=== PATIENT | male | born 1975 | race Caucasian/White ===

== ENCOUNTER 2017-06-13 16:07 | Emergency (ER) | payer OTHER ==
[~2017-06-13] VITALS: Ht 177.8 cm; Wt 86.2 kg
[2017-06-13] MEDS ORDERED: CLOT15CR4 TP (16:34)
[2017-06-13] MEDS ORDERED: TRAM-48 PO (16:34)
[2017-06-13] MEDS ORDERED: AMOX1TAB61 PO (16:34)
--- NOTE | 2017-06-13 16:34 | PHYS DOC ---
Past History Past Medical History: No Pertinent History Past Surgical History: Tonsillectomy Smoking: Non-smoker Alcohol Use: None Drug Use: None Adult General Chief Complaint Chief Complaint: EARACHE/EAR PAIN [facility] HPI 41-year-old male patient complaining of right ear pain for the last 1 week after he had URI symptoms. Patient complaining of pressure feeling in his ear and decrease of hearing with radiation of pain to his neck and head. Patient states he was seen at [facility] emergency room and treated with steroid and Sudafed without improvement of his condition. Patient denies fever and chills, chest pain, shortness of breath. Review of Systems Review of Systems Constitutional: Denies fever or chills [] Eyes: Denies change in visual acuity, redness, or eye pain [] HENT: Denies nasal congestion or sore throat , reports earache[] Respiratory: Denies cough or shortness of breath [] Cardiovascular: No additional information not addressed in HPI [] GI: Denies abdominal pain, nausea, vomiting, bloody stools or diarrhea [] : Denies dysuria or hematuria [] Musculoskeletal: Denies back pain or joint pain [] Integument: Denies rash or skin lesions [] Neurologic: Denies headache, focal weakness or sensory changes [] Endocrine: Denies polyuria or polydipsia [] All other systems were reviewed and found to be within normal limits, except as documented in this note. Allergies Allergies Allergies Coded Allergies Type Severity Reaction Last Updated Verified No Known Drug Allergies 06/13/17 No Physical Exam Physical Exam Constitutional: Well developed, well nourished, mild distress, non-toxic appearance. [] HENT: Normocephalic, atraumatic, right tympanic membrane is tender and covered with white membrane, erythema and tenderness of ear canal, oropharynx moist, no oral exudates, nose normal. [] Eyes: PERRLA, EOMI, conjunctiva normal, no discharge. [] Neck: Normal range of motion, no tenderness, supple, no stridor. [] Cardiovascular:Heart rate regular rhythm, no murmur [] Lungs & Thorax: Bilateral breath sounds clear to auscultation [] Neurologic: Alert and oriented X 3, normal motor function, normal sensory function, no focal deficits noted. [] Psychologic: Affect normal, judgement normal, mood normal. [] Current Patient Data Vital Signs Vital Signs Date Time Temp Pulse Resp B/P (MAP) Pulse Ox O2 Delivery O2 Flow Rate FiO2 06/13/17 16:25 98.2 95 22 97 Room Air EKG EKG [] Radiology/Procedures Radiology/Procedures [] Course & Med Decision Making Course & Med Decision Making Pertinent Labs and Imaging studies reviewed. (See chart for details) []Volitional patient in ER showed 40-year-old male patient with complaining of right ear pain for 1 week. Patient had erythema and tenderness of right earache and unemployed with possible sign of infection. Prescription for Augmentin was given and patient had prescription of clotrimazole to use if the oral antibiotic does not helping for his pain after 72 hour. Dragon Disclaimer Dragon Disclaimer This electronic medical record was generated, in whole or in part, using a voice recognition dictation system. Departure Departure: Impression: Primary Impression: Right otitis media Disposition: HOME, SELF-CARE (At 1630) Condition: STABLE Patient Instructions: Otitis Media, Adult Additional Instructions: Follow-up with your primary care physician in 3-5 days Return to ER if not getting better Scripts Tramadol Hcl (ULTRAM) 50 Mg Tablet 50 MG PO PRN Q6HRS Y for PAIN, #14 TAB Prov: JUNIE MORFIN MD 06/13/17 Clotrimazole (CLOTRIMAZOLE) 15 Gm Cream..g. 1 FLAKO TP TID for 14 Days, #45 GM Prov: JUNIE MORFIN MD 06/13/17 Amoxicillin/Potassium Clav (AUGMENTIN 875-125 TABLET) 1 Each Tablet 1 TAB PO BID, #20 TAB Prov: JUNIE MORFIN MD 06/13/17 JUNIE MORFIN MD June 13, 2017 16:34
[2017-06-13 16:48] VITALS: BP 147/86
== END 2017-06-13 16:45 | disposition home or self-care (01) ==
LOC: ER 16:07
DX: H66.91 Otitis media, unspecified, right ear (principal)
CPT/HCPCS: 99283